=== PATIENT | male | born 1955 | race Caucasian/White ===

== ENCOUNTER 2020-06-12 09:31 | Observation (INO) | payer OTHER ==
[~2020-06-12] VITALS: Ht 175.3 cm; Wt 62.4 kg
[~2020-06-12 09:31] MED LIST: Cleocin HCl300 MG PO
[2020-06-12 10:11] LABS: BASOPHILS ABSOLUTE AUTO 0.04 K/mm3 (0.00-0.23); BASOPHILS PERCENT AUTO 1 % (0-2); EOSINOPHILS ABSOLUTE AUTO 0.08 K/mm3 (0.00-0.68); EOSINOPHILS PERCENT AUTO 2 % (0-6); Hematocrit 42.1 % (37.0-53.0); Hemoglobin 14.3 g/dL (13.5-17.5); IMMATURE GRAN PERCENT AUTO 0 % (0-1); LYMPHOCYTES ABSOLUTE AUTO 1.26 K/mm3 (0.84-5.20); LYMPHOCYTES PERCENT AUTO 28 % (21-46); MONOCYTES ABSOLUTE AUTO 0.37 K/mm3 (0.16-1.47); MONOCYTES PERCENT AUTO 8 % (4-13); Mean Corpuscular HGB 30.9 pg (26.0-34.0); Mean Corpuscular Volume 91 fL (80-100); Mean Platelet Volume 10.5 fL (9.1-12.4); NEUTROPHILS ABSOLUTE AUTO 2.69 K/mm3 (1.96-9.15); NEUTROPHILS PERCENT AUTO 61 % (41-73); Platelet Count 117 K/mm3 (150-400); RDW Coefficient Variation 11.8 % (11.7-14.2); RDW Standard Deviation 38.9 fL (35.1-46.3); Red Blood Cell Count 4.63 M/mm3 (4.30-5.90); White Blood Cell Count 4.44 K/mm3 (4.00-11.30)
[2020-06-12] MEDS ORDERED: ATEN50 PO (10:22)
[2020-06-12] MEDS ORDERED: ASPIR 8181 M1 PO (10:23)
[2020-06-12 10:24] LABS: Alanine Aminotransfer (ALT/SGP 32 U/L (12-78); Albumin, Blood 3.8 g/dL (3.4-5.0); Albumin/Globulin Ratio 1.3 (0.8-1.8); Alk Phos 59 U/L (50-136); Anion Gap 4 mmol/L (6-16); Aspartate Aminotrans (AST/SGOT 26 U/L (12-37); Bilirubin, Total 0.8 mg/dL (0.1-1.0); Blood Urea Nitrogen 15 mg/dL (8-24); Bun/Creatinine Ratio 17.4 (12.0-20.0); CO2, Blood 27 mmol/L (21-32); Calcium, Blood 8.7 mg/dL (8.5-10.1); Chloride, Blood 112 mmol/L (98-108); Creatinine, Blood 0.86 mg/dL (0.60-1.20); Globulin, Blood 2.9 g/dL (2.2-4.0); Glomerular Filtration Rate >60 (60-); Glucose, Blood 104 mg/dL (70-99); Sodium, Blood 143 mmol/L (136-145); Total Protein, Blood 6.7 g/dL (6.4-8.2); Troponin I <0.015 ng/mL (0.000-0.040)
[2020-06-12 10:25] LABS: International Normalized Ratio 1.03
[2020-06-12] MEDS ORDERED: Vitamin B-121000 MCG PO (11:59)
[2020-06-12] MEDS ORDERED: Vitamin D2000 UNIT PO (11:59)
[2020-06-12] MEDS ORDERED: Crestor20 MG PO (11:59)
[2020-06-12] MEDS ORDERED: ALBU90OI6 INH (16:28)
--- NOTE | 2020-06-12 17:07 | NUR ---
PATIENT ARRIVED FROM ED VIA GURNEY, ABLE TO TRANSFER AND AMBULATE INDEPENDENTLY IN ROOM. PATIENT DENIES CHEST PAINT PAIN, O2 SATS IN 90S ON ROOM AIR. NO SIGNS OF ACUTE DISTRESS, WCTM.
[2020-06-13 04:12] LABS: Hematocrit 41.2 % (37.0-53.0); Hemoglobin 13.9 g/dL (13.5-17.5); Mean Corpuscular HGB 30.5 pg (26.0-34.0); Mean Corpuscular HGB Conc 33.7 g/dL (31.5-36.5); Mean Corpuscular Volume 91 fL (80-100); Mean Platelet Volume 10.5 fL (9.1-12.4); Platelet Count 108 K/mm3 (150-400); RDW Coefficient Variation 11.7 % (11.7-14.2); RDW Standard Deviation 38.4 fL (35.1-46.3); Red Blood Cell Count 4.55 M/mm3 (4.30-5.90); White Blood Cell Count 4.77 K/mm3 (4.00-11.30)
[2020-06-13 04:35] LABS: Anion Gap 4 mmol/L (6-16); Blood Urea Nitrogen 15 mg/dL (8-24); Bun/Creatinine Ratio 19.4 (12.0-20.0); CHOL/HDL RATIO 2.5; CO2, Blood 25 mmol/L (21-32); Calcium, Blood 8.4 mg/dL (8.5-10.1); Chloride, Blood 113 mmol/L (98-108); Cholesterol 125 mg/dL (50-200); Creatinine, Blood 0.77 mg/dL (0.60-1.20); Glomerular Filtration Rate >60 (60-); Glucose, Blood 120 mg/dL (70-99); HDL Cholesterol 51 mg/dL (>39); LDL/HDL RATIO 1.1; Low Density Lipoprotein Chol 54 mg/dL (0-110); Sodium, Blood 142 mmol/L (136-145); Triglycerides 102 mg/dL (30-160); Very Low Density Lipoprot Chol 20 mg/dL (6-32)
--- NOTE | 2020-06-13 05:11 | NUR ---
SHIFT SUMMARY PT RESTED COMFORTABLY THROUGH NIGHT. ALERT AND ORIENTED. PT WAS EXPLAINING THAT HE WAS A LITTLE ANXIOUS BEING IN THE HOSPITAL. WE DID GET KLONOPIN ORDERED AND HIS NIGHTLY LIPITOR. IVF RUNNING AT 75/HR. DOES NOT C/O CHEST PAIN, SERIAL TROPONINS NEGATIVE. SATS >90% ON ROOM AIR. TELE - SINUS KOKO TO NORMAL SINUS. PT INADVERTANTLY PULLED OUT IV WITHOUT REALIZING, STARTED NEW 20G L FA - WNL. FLUSHES WELL, AND PAINLESS. INDEPENDENTLY WALKS TO BATHROOM. VOIDS WELL. NO BM. OVERALL PT IS SLIGHTLY AN ANXIOUS GENTLEMEN, HAS LOTS OF QUESTIONS REGARDING PLAN OF CARE AND SCANS, ETC. CALL LIGHT WITHIN REACH, BED IN LOWEST POSITION. WILL CONTINUE TO MONITOR.
--- NOTE | 2020-06-13 11:10 | NUR ---
PATIENT STATES THAT HE IS READY TO GO HOME. ASKING WHEN THE DOCTOR WILL BE IN. ASKING THAT THE DOCTOR BE CALLED TO SPEAK WITH HIM. CALLED DR. ALMONTE TO NOTIFY HER THAT PATIENT IS READY TO GO HOME AND WOULD LIKE TO SEE HER SOON POSSIBLE. DR. ALMONTE ASKED IF HE WAS STILL ON A HEPARIN DRIP. LOOKED AT PATIENT'S EMAR, PATIENT HAD REFUSED HEPARIN INFUSION, NOTIFIED DR. ALMONTE.
--- NOTE | 2020-06-13 12:27 | NUR ---
DR. DAVILA AT BEDSIDE. DISCUSSED POC. ORDERS RECEIVED TO ADJUST LIPITOR TO 40 MG BEDTIME, SEE EMAR. REVIEWED PATIENT MEDS AND LABS. ASKED ME TO CALL DR. MITTAL TO SEE IF HE HAD ANY FURTHER INPUT REGARDING POC. PATIENT DOES NOT WANT AN ANGIOGRAM AND PREFERS TO HAVE A STRESS TEST AN OUTPATIENT.
--- NOTE | 2020-06-13 13:36 | NUR ---
CALLED DR. MITTAL. DISCUSSED PATIENT'S TROPONINS, ALL NEGATIVE. PATIENT IS UP IN ROOM AND HAS DENIED CHEST PAIN, PALPITATIONS, AND SHORTNESS OF BREATH. DR. MITTAL RECOMMENDS THAT IF PATIENT HAS BEEN SYMPTOM FREE TO FOLLOW UP FOR A STRESS TEST AN OUTPATIENT. CALL OUT TO DR. ALMONTE TO NOTIFY HER.
--- NOTE | 2020-06-13 15:53 | NUR ---
DISCHARGE: PATIENT DISCHARGED HOME AT 1550. ESCORTED OUT VIA WHEELCHAIR BY GISELLE CUADRA RN. IV D/C'D. REVIEWED DISCHARGE MEDS, INSTRUCTIONS, AND EDUCATION WITH PATIENT, COPIES GIVEN TO TAKE HOME, NO FURTHER QUESTIONS AT TIME OF DISCHARGE. [facility], THEY SAID THAT PATIENT'S PCP JUST RETIRED AND SOMEONE IS COVERING THEIR PATIENTS, THEY WILL CALL PATIENT WITH A F/U APPOINTMENT DATE/TIME. GISELLE CUADRA CALLED [facility]OLOG[facility] AND [facility] TO SCHEDU[facility]POINT[facility], [facility] NEED[facility]PAT[facility] CARDIOLOGY APPT, PATIENT WILL BE CALLED WITH A DATE/TIME FOR THIS APPOINTMENT. ARRANGED TRANSPORT FOR [facility] BACK TO [facility] TO [facility]OUGH [facility], [facility] HIM [facility]. NO FURTHER QUESTIONS AT TIME OF DISCHARGE.
== END 2020-06-13 15:54 | disposition home or self-care (01) ==
LOC: ER 09:31 → ERHOLD 09:32 → PCU 09:32
PROVIDERS: Nurse Practitioner Acute Care; Physician Assistant; ADMIT Internal Medicine
DX: R07.9 Chest pain, unspecified (principal); I25.10 Atherosclerotic heart disease of native coronary artery without angina pectoris; I10 Essential (primary) hypertension; E78.5 Hyperlipidemia, unspecified; R00.2 Palpitations; R00.1 Bradycardia, unspecified; R91.8 Other nonspecific abnormal finding of lung field; I25.2 Old myocardial infarction; F43.10 Post-traumatic stress disorder, unspecified; E11.9 Type 2 diabetes mellitus without complications; F10.20 Alcohol dependence, uncomplicated; D69.6 Thrombocytopenia, unspecified; F41.1 Generalized anxiety disorder; F32.9 Major depressive disorder, single episode, unspecified; Z88.0 Allergy status to penicillin; Z88.1 Allergy status to other antibiotic agents; Z88.5 Allergy status to narcotic agent; Z88.8 Allergy status to other drugs, medicaments and biological substances; Z91.041 Radiographic dye allergy status; Z95.5 Presence of coronary angioplasty implant and graft; Z87.891 Personal history of nicotine dependence; Z79.82 Long term (current) use of aspirin; Z79.899 Other long term (current) drug therapy; Z96.652 Presence of left artificial knee joint
CPT/HCPCS: 36415; 71046; 71250; 80048; 80053; 80061; 83036; 84484; 85025; 85027; 85610; 85730; 93005; 93010; 93306; 99285-25; A9270-GY; G0378; J0360; J1644; J7030

== ENCOUNTER 2020-08-07 09:09 | Emergency (ER) | payer OTHER ==
[~2020-08-07] VITALS: Ht 175.3 cm; Wt 63.5 kg
[~2020-08-07 09:09] MED LIST changes: +ALBU90OI6 INH; +ASPIR 8181 M1 PO; +ATEN50 PO; +Crestor20 MG PO; +Vitamin B-121000 MCG PO; +Vitamin D2000 UNIT PO
[2020-08-07 11:04] LABS: BASOPHILS ABSOLUTE AUTO 0.04 K/mm3 (0.00-0.23); BASOPHILS PERCENT AUTO 1 % (0-2); EOSINOPHILS ABSOLUTE AUTO 0.06 K/mm3 (0.00-0.68); EOSINOPHILS PERCENT AUTO 1 % (0-6); Hemoglobin 15.7 g/dL (13.5-17.5); IMMATURE GRAN ABSOLUTE AUTO 0.01 K/mm3 (0.00-0.10); IMMATURE GRAN PERCENT AUTO 0 % (0-1); LYMPHOCYTES ABSOLUTE AUTO 1.22 K/mm3 (0.84-5.20); LYMPHOCYTES PERCENT AUTO 27 % (21-46); MONOCYTES ABSOLUTE AUTO 0.35 K/mm3 (0.16-1.47); MONOCYTES PERCENT AUTO 8 % (4-13); Mean Corpuscular HGB 31.9 pg (26.0-34.0); Mean Corpuscular HGB Conc 34.1 g/dL (31.5-36.5); Mean Corpuscular Volume 94 fL (80-100); Mean Platelet Volume 10.7 fL (9.1-12.4); NEUTROPHILS ABSOLUTE AUTO 2.77 K/mm3 (1.96-9.15); NEUTROPHILS PERCENT AUTO 62 % (41-73); Platelet Count 113 K/mm3 (150-400); RDW Coefficient Variation 11.2 % (11.7-14.2); RDW Standard Deviation 38.4 fL (35.1-46.3); Red Blood Cell Count 4.92 M/mm3 (4.30-5.90); White Blood Cell Count 4.45 K/mm3 (4.00-11.30)
[2020-08-07 11:20] LABS: Alanine Aminotransfer (ALT/SGP 34 U/L (12-78); Albumin, Blood 3.9 g/dL (3.4-5.0); Albumin/Globulin Ratio 1.1 (0.8-1.8); Alk Phos 65 U/L (50-136); Anion Gap 5 mmol/L (6-16); Aspartate Aminotrans (AST/SGOT 29 U/L (12-37); Bilirubin, Total 0.6 mg/dL (0.1-1.0); Blood Urea Nitrogen 13 mg/dL (8-24); Bun/Creatinine Ratio 16.6 (12.0-20.0); CO2, Blood 27 mmol/L (21-32); Calcium, Blood 8.9 mg/dL (8.5-10.1); Chloride, Blood 110 mmol/L (98-108); Creatinine, Blood 0.78 mg/dL (0.60-1.20); Ethanol (Alcohol), Blood, Med <3 mg/dL; Globulin, Blood 3.4 g/dL (2.2-4.0); Glomerular Filtration Rate >60 (60-); Glucose, Blood 182 mg/dL (70-99); Magnesium, Blood 2.4 mg/dL (1.6-2.4); Potassium, Blood 4.3 mmol/L (3.5-5.5); Sodium, Blood 142 mmol/L (136-145); Total Protein, Blood 7.3 g/dL (6.4-8.2); Troponin I <0.015 ng/mL (0.000-0.040)
== END 2020-08-07 11:50 | disposition home or self-care (01) ==
LOC: ER 09:09
PROVIDERS: Emergency Medicine
DX: F10.239 Alcohol dependence with withdrawal, unspecified (principal); R07.9 Chest pain, unspecified; I25.10 Atherosclerotic heart disease of native coronary artery without angina pectoris; I10 Essential (primary) hypertension; E11.9 Type 2 diabetes mellitus without complications; E78.5 Hyperlipidemia, unspecified; F41.1 Generalized anxiety disorder; F32.9 Major depressive disorder, single episode, unspecified; Z91.041 Radiographic dye allergy status; Z88.0 Allergy status to penicillin; Z88.8 Allergy status to other drugs, medicaments and biological substances; Z88.1 Allergy status to other antibiotic agents; Z79.82 Long term (current) use of aspirin; Z95.5 Presence of coronary angioplasty implant and graft; Z87.891 Personal history of nicotine dependence
CPT/HCPCS: 36415; 80053; 83735; 84484; 85025; 93005; 93010; 96374; 99285-25; G0480; J3411; J3475; J7042

== ENCOUNTER 2020-09-10 10:11 | Emergency (ER) | payer OTHER ==
[~2020-09-10] VITALS: Ht 175.3 cm; Wt 63.5 kg
[2020-09-10 10:53] LABS: BASOPHILS ABSOLUTE AUTO 0.02 K/mm3 (0.00-0.23); BASOPHILS PERCENT AUTO 0 % (0-2); EOSINOPHILS ABSOLUTE AUTO 0.05 K/mm3 (0.00-0.68); EOSINOPHILS PERCENT AUTO 1 % (0-6); Hematocrit 40.1 % (37.0-53.0); Hemoglobin 14.2 g/dL (13.5-17.5); IMMATURE GRAN ABSOLUTE AUTO 0.02 K/mm3 (0.00-0.10); IMMATURE GRAN PERCENT AUTO 0 % (0-1); LYMPHOCYTES ABSOLUTE AUTO 0.81 K/mm3 (0.84-5.20); LYMPHOCYTES PERCENT AUTO 16 % (21-46); MONOCYTES PERCENT AUTO 6 % (4-13); Mean Corpuscular HGB 32.2 pg (26.0-34.0); Mean Corpuscular HGB Conc 35.4 g/dL (31.5-36.5); Mean Corpuscular Volume 91 fL (80-100); Mean Platelet Volume 10.3 fL (9.1-12.4); NEUTROPHILS ABSOLUTE AUTO 3.73 K/mm3 (1.96-9.15); NEUTROPHILS PERCENT AUTO 76 % (41-73); Platelet Count 111 K/mm3 (150-400); RDW Standard Deviation 36.7 fL (35.1-46.3); Red Blood Cell Count 4.41 M/mm3 (4.30-5.90); White Blood Cell Count 4.93 K/mm3 (4.00-11.30)
[2020-09-10 11:13] LABS: Alanine Aminotransfer (ALT/SGP 33 U/L (12-78); Albumin, Blood 3.6 g/dL (3.4-5.0); Albumin/Globulin Ratio 1.3 (0.8-1.8); Alk Phos 55 U/L (50-136); Anion Gap 5 mmol/L (6-16); Aspartate Aminotrans (AST/SGOT 22 U/L (12-37); Bilirubin, Total 0.7 mg/dL (0.1-1.0); Blood Urea Nitrogen 18 mg/dL (8-24); CO2, Blood 27 mmol/L (21-32); Calcium, Blood 8.7 mg/dL (8.5-10.1); Chloride, Blood 107 mmol/L (98-108); Creatinine, Blood 1.06 mg/dL (0.60-1.20); Globulin, Blood 2.7 g/dL (2.2-4.0); Glomerular Filtration Rate >60 (60-); Glucose, Blood 152 mg/dL (70-99); Potassium, Blood 4.3 mmol/L (3.5-5.5); Sodium, Blood 139 mmol/L (136-145); Total Protein, Blood 6.3 g/dL (6.4-8.2)
[2020-09-10 11:31] LABS: Source, Urine Clean Catch
[2020-09-10 11:38] LABS: Appearance, Urine Clear (Clear); Bilirubin, Urine Neg (Neg); Blood, Urine 2+ (Neg); Color, Urine Yellow (P-Yellow); Glucose Qualitative, Urine 1+ (Neg); Ketones, Urine Neg (Neg); Leukocyte Esterase, Urine Neg (Neg); Nitrite, Urine Neg (Neg); Protein, Urine Neg (Neg); Urobilinogen, Urine NORM (Normal); pH, Urine 6.5 (5.0-8.0)
[2020-09-10 12:13] LABS: White Blood Cells, Urine 0-2 /hpf (0-5)
[2020-09-10 12:14] LABS: Bacteria Few /hpf; Squamous Epithelial Cells Not Seen /hpf (Few)
[2020-09-10] MEDS ORDERED: Percocet 5-3251 EACH PO (13:53)
[2020-09-10] MEDS ORDERED: Flomax0.4 MG PO (13:53)
[2020-09-10 15:11] LABS: Influenza A, PCR NEGATIVE (NEGATIVE); Influenza B, PCR NEGATIVE (NEGATIVE); Resp Syncytial Virus, PCR NEGATIVE (NEGATIVE); SARS-Cov-2 (COVID-19) PCR, MMC NEGATIVE (NEGATIVE)
== END 2020-09-10 14:35 | disposition home or self-care (01) ==
LOC: ER 10:11
PROVIDERS: Physician Assistant
DX: N13.2 Hydronephrosis with renal and ureteral calculous obstruction (principal); I25.10 Atherosclerotic heart disease of native coronary artery without angina pectoris; I10 Essential (primary) hypertension; E11.9 Type 2 diabetes mellitus without complications; E78.5 Hyperlipidemia, unspecified; Z79.899 Other long term (current) drug therapy; Z79.82 Long term (current) use of aspirin; Z88.8 Allergy status to other drugs, medicaments and biological substances; Z88.0 Allergy status to penicillin; Z88.1 Allergy status to other antibiotic agents; Z88.5 Allergy status to narcotic agent; Z87.891 Personal history of nicotine dependence; Z20.822 Contact with and (suspected) exposure to COVID-19
CPT/HCPCS: 0241U; 36415; 74176; 80053; 81001; 83690; 85025; 96374; 99284-25; J1885; J2405